=== PATIENT | female | born 1985 | race Caucasian/White ===

== ENCOUNTER 2016-12-06 08:11 | Emergency (ER) | payer MEDICAID ==
--- NOTE | 2016-12-06 09:55 | ERNOTE ---
[facility] Date of Service: 12/06/16 Presenting Symptoms: other - Sore Throat Time Seen by Provider: 12/06/16 09:44 Source: patient Exam Limitations: no limitations - Immun/Allergies/Home Medications Immunizations: IMMUNIZATION HX History of Influenza Vaccine No Hx Pneumococcal Vaccination No Allergies/Adverse Reactions: Allergies Allergy/AdvReac Type Severity Reaction Status Date / Time amoxicillin Allergy Verified 12/06/16 08:30 latex Allergy Verified 12/06/16 08:30 penicillin V Allergy Verified 12/06/16 08:30 Home Medications: HOME MEDICATIONS Azithromycin [Zithromax] 500 mg PO NOW #6 tab 12/06/16 [Last Taken Unknown] Metformin HCl [Metformin HCl ER] 500 mg PO HS 12/06/16 [Last Taken Unknown] Spironolactone [Aldactone] 25 mg PO DAILY 12/06/16 [Last Taken Unknown] hydrOXYzine PAMOATE [Hydroxyzine Pamoate] 25 mg PO HS 12/06/16 [Last Taken Unknown] traZODone HCL [Desyrel] 50 mg PO HS 12/06/16 [Last Taken Unknown] - History of Present Illness Narrative: Patient comes due to sore throat and fever. Patient has been with mild coughing. Severity: Present: mild ENT Location: Present: throat Prearrival Treatment: Present: no prearrival treatment Modifying Factors - Improves: Reports: nothing Modifying Factors - Worsens: Reports: nothing Associated Symptoms - ENT: Reports: sore throat Prior Treament: Denies: recently seen Review of Systems - Review of Systems Constitutional: Present: no symptoms reported EYE: Present: no symptoms reported ENT: Present: sore throat Respiratory: Present: cough. Absent: shortness of breath Cardiology: Present: no symptoms reported Gastrointestinal/Abdominal: Present: no symptoms reported Genitourinary: Present: no symptoms reported Musculoskeletal: Present: no symptoms reported Skin: Present: no symptoms reported Neurological: Present: no symptoms reported Endocrine: Present: no symptoms reported Hematologic/Lymphatic: Present: no symptoms reported Psych: Present: no symptoms reported - Patient's Past Medical History Patient History - Medical: Diabetes Type 2 Patient History - Cancer: No Hx of Cancer Patient History - Surgical Procedures: , Tubal Ligation - Social History Living Situations: home Smoking Status: Current every day smoker Physical Exam - Physical Exam General Appearance: Present: wd/wn, alert, no apparent distress Eye Exam: Normal inspection: bilateral, PERRL: bilateral, EOMI: bilateral Ears, Nose, Throat: Present: hearing grossly normal, pharyngeal erythema, pharyngeal swelling, tonsillar swelling. Absent: dry mucous membranes Neck: Present: normal inspection Respiratory: Present: no respiratory distress, normal breath sounds, no accessory muscle use, chest nontender, lungs clear Cardiovascular/Chest: Present: regular rate, rhythm, no murmur, normal peripheral pulses Peripheral Pulses: N=norm/S=strong/W=weak/B=bound/A=absent: Carotid (R): Normal , Carotid (L): Normal, Dorsalis-pedis (R): Normal, Dorsalis-pedis (L): Normal Gastrointestinal/Abdominal: Present: normal bowel sounds, nontender, nondistended, soft, no organomegaly Back Exam: Present: normal inspection, normal range of motion, no CVA tenderness , no vertebral tenderness Extremity Exam: Present: normal inspection, non-tender, no edema, normal range of motion Neurological Exam: Present: alert, oriented, normal mood/affect, no motor/ sensory deficits Skin Exam: Present: normal color, warm/dry Lymphatic Exam: Present: no adenopathy ED Progress - Results and Orders Results and Orders: No labs and no x-ray ordered for this patient - Vital Signs Vital Signs: Vital Signs 12/06/16 12/06/16 08:24 09:28 Temperature 36.1 C L Pulse Rate 87 86 Respiratory 12 12 Rate Blood Pressure 144/84 126/84 O2 Sat by Pulse 93 99 Oximetry - Progress/Reassessment Chief Complaint: Sore Throat - Transfer of Care Expected Disposition: Discharge Departure Clinical Impression: Sore throat - Departure Disposition: Home self-care Condition: Stable Instructions: Sore Throat Prescriptions: Azithromycin [Zithromax] 500 mg PO NOW #6 tab
[2016-12-06 10:29] VITALS: BP 145/88
== END 2016-12-06 10:25 | disposition home or self-care (01) ==
LOC: ER 08:11
DX: J02.9 Acute pharyngitis, unspecified (principal); F17.210 Nicotine dependence, cigarettes, uncomplicated; E11.9 Type 2 diabetes mellitus without complications